=== PATIENT | male | born 2000 | race Caucasian/White ===

== ENCOUNTER 2022-05-31 03:58 | Emergency (ER) | payer OTHER, SELFPAY ==
--- NOTE | ~2022-05-31 | CT_ITS ---
EXAMINATION: CT HEAD WITHOUT CONTRAST CLINICAL INFORMATION: Headache and dizziness. Rule out mass. COMPARISON: None available. TECHNIQUE: Contiguous axial imaging was performed from the skull base to vertex without intravenous administration of contrast. This CT examination was performed using dose optimization techniques as appropriate, variously including the following: *Automated exposure control *Adjustment of mA and/or kV according to patient size (this includes techniques or standardized protocols for targeted exams where dose is matched to indication/reason for exam; i.e. extremities or head) *Use of iterative reconstruction technique DLP: 650 mGy-cm FINDINGS: There is no evidence of acute intracranial hemorrhage or territorial infarction. No abnormal mass effect or midline shift is seen. Walters to white matter differentiation is well preserved. No extra-axial fluid collections are identified. No hydrocephalus. No significant volume loss. There is no abnormal attenuation within the brain parenchyma. No acute osseous or soft tissue abnormality. The mastoid air cells and visualized portions of the paranasal sinuses are well aerated. CT/CT head/brain wo IV con IMPRESSION: No acute intracranial pathology.
--- NOTE | 2022-05-31 04:01 | ECG_ITS ---
Test Reason : chest pain Blood Pressure : / mmHG Vent. Rate : 085 BPM Atrial Rate : 085 BPM P-R Int : 162 ms QRS Dur : 088 ms QT Int : 372 ms P-R-T Axes : 074 075 033 degrees QTc Int : 442 ms Normal sinus rhythm Biatrial enlargement Abnormal ECG No previous ECGs available Referred By: Generic ED Physician Electronically Signed By:MARLA BELLAMY
[2022-05-31 04:02] VITALS: BP 125/74; PULSE 82; RESP 16; TEMP 36.4; O2SAT 98; BMI 21.6
[2022-05-31 04:22] LABS: MANUAL DIFF FLAG NO
[2022-05-31 04:23] LABS: Basophils Percent Auto 0.6 % (0-2); Eosinophils Absolute Auto 0.2 X10*3/uL (0.0-0.4); Eosinophils Percent Auto 3.4 % (0-4); Hematocrit 47.7 % (42.0-52.0); Imm Gran Abs Auto 0.01 X10*3/uL (0.00-0.03); Imm Gran Pct Auto 0.1 % (0.0-0.4); Lymphocytes Absolute Auto 2.4 X10*3/uL (1.2-4.9); Lymphocytes Percent Auto 32.8 % (20-40); Mean Corpuscular HGB Conc 35.6 g/dl (31.0-36.0); Mean Corpuscular Hemoglobin 28.9 pg (27.0-33.0); Mean Corpuscular Volume 81.1 fL (80.0-98.0); Monocytes Absolute Auto 0.4 X10*3/uL (0.1-1.2); Neutrophils Absolute Auto 4.1 x10*3/uL (2.0-8.3); Neutrophils Percent Auto 57.1 % (45-73); Platelet Count 212 X10*3/uL (160-400); Red Blood Count 5.88 X10*6/uL (4.60-5.80); Red Cell Distribution Width 13.2 % (11.0-16.0); White Blood Count 7.2 X10*3/uL (4.8-10.8)
--- NOTE | 2022-05-31 04:30 | PC.NURSE ---
Pt aox4 with dad at the bedside. Breaths are even regular and unlabored. NSR on monitor with HR of 75. Abd soft and non tender. Skin warm pink and clammy. Reports chest pain, 9/10. EKG done and given to provider. Labs drawn and sent. 20G IV line on the L AC. Pt tolerated well. Pending lab results and provider evaluation. Will continue to monitor.
[2022-05-31 05:23] LABS: Troponin-I High Sensitivity < 2.7 ng/L (<3.5-35.0)
[2022-05-31 05:24] LABS: Alanine Aminotransferase 22 U/L (0-40); Alkaline Phosphatase 107 U/L (39-117); Anion Gap 18 (12-20); Aspartate Amino Transferase 20 U/L (5-37); Bilirubin Total 0.8 mg/dL (0.0-1.0); Blood Urea Nitrogen 13 mg/dL (9-16); Carbon Dioxide 18 mmol/L (22-29); Chloride 110 mmol/L (96-108); Creatinine Clr Calc Pharmacy 122.8; Estimated Glomerular Filt Rate > 60; Glucose Fasting 81 mg/dL (60-99); Potassium 3.8 mmol/L (3.3-5.1); Sodium 142 mmol/L (135-145); Total Protein 7.8 g/dL (6.5-8.0)
--- NOTE | 2022-05-31 05:52 | ED.CHESTPAIN ---
HPI - Chest Pain General Chief Complaint: Chest Pain Stated Complaint: cp, n/v Time Seen by Provider: 05/31/22 05:52 Source: patient and family (Father, Andrea) Mode of arrival: ambulatory Limitations: no limitations History of Present Illness HPI narrative: 21-year-old male who presents emergency department for evaluation of chest pain, nausea, headache, dizziness. The patient states that 2 weeks prior, he was sitting about to have dinner with a friend when he had a sudden syncopal episode. The patient does not have any memory of the event. His friend states that the patient fell and his eyes were open, staring into space, there was no seizure activity noted. The syncopal event lasted several minutes, when the patient woke up he was confused and had no memory of passing out. He states that he had no prodrome will symptoms. Patient states that when the paramedics arrived his vital signs were abnormal with a blood pressure of 80/50 and a heart rate which was 30. Patient was seen at [facility] and had blood work which was normal pain. EKG was read as biatrial enlargement. Patient followed up with his PCP and had a 48 hour Holter monitor done but does not have the result. He is not seen a lacquer sizer but he is scheduled for an echocardiogram at this facility in 2 days. Patient states that on 05/27/2022 (5 days prior) these he had an episode of chest pain with palpitations. He states this morning at 03:00 hours he woke up and felt his heart was beating in his stomach area. He believes that the heart was not beating fast or irregularly. He felt lightheaded and dizzy. He had nausea but no vomiting. He describes the dizzy sensation is feeling ?drunk ?. He points to his sternum when asked to localize the pain. He states that it was a sharp pressure-like pain. He did have a headache today. He states that he has lost approximately 10 lb unintentionally. He denied night sweats. Related Data Allergies Allergy/AdvReac Type Severity Reaction Status Date / Time No Known Allergies Allergy Unverified 11/01/19 16:43 [No Known Allergies*] Review of Systems Review of Systems: Yes all other systems are reviewed and are negative [facility] Past Medical History [facility] Narrative: Past medical history: Depression, PTSD, juvenile rheumatoid arthritis. 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 Denies tobacco use. He drinks alcohol socially. He denies drug use. Social History Social History Advance Directives: No Physical Exam Vital Signs: Vital Signs: Last Vital Signs Temp 97.5 F 05/31/22 04:02 Pulse 94 05/31/22 06:22 Resp 16 05/31/22 04:02 BP 122/80 05/31/22 06:22 Pulse Ox 98 05/31/22 04:02 O2 Del Method Room Air 05/31/22 04:02 BMI result Body Mass Index 21.6 Const: General: cooperative and no acute distress Orientation/consciousness: oriented to person and oriented to place Limitations: no limitations HEENT: Head: Yes normal to inspection, Yes normocephalic and Yes atraumatic Ears: external ears normal General nose exam: Normal external nose present Face and sinus: Yes normal facial exam Mouth: Normal oral and palatal mucosa present Throat: Yes posterior oropharynx normal Eyes: General: appearance normal, both eyes and all related structures Pupils: Equal, round and reactive pupils present Neck: Neck: Yes normal visual inspection, Yes no lymphadenopathy, Yes trachea midline and Yes supple Chest: Chest palpation & inspection: normal inspection of the chest and normal palpation of entire chest wall Resp: Effort & Inspection: normal respiratory effort and able to speak in complete sentences Auscultation: clear to auscultation bilaterally Cardio: Rate: regular rate Rhythm: regular rhythm Heart sounds: S1 normal heart sound present, S2 normal heart sound present and no murmurs GI: Inspection: Yes normal to inspection Palpation (GI): Soft to palpation, nontender and no guarding Auscultation: normal bowel sounds : General: Yes no CVA tenderness Back/Spine/Pelvis: Back: no CVA tenderness Skin: General skin exam: no rashes or lesions noted Neuro: General: oriented to person and oriented to place Cranial nerves: Yes CN's II-XII intact bilaterally and Yes Equal, round and reactive pupils present Cognition (Neuro): normal cognition Motor exam (neuro): 5/5 motor strength present throughout Coordination: [id number]-[id number] test normal, [id number]-zm-[id number] test normal and other (No nystagmus, no positional vertigo) Extrem: General: Yes normal to inspection Psych: Appearance: grossly normal Speech and movement: Normal speech and movement present Affect: normal affect Attitude: cooperative Thought process: Normal thought process present Thought content: Normal thought content present Medical Decision Making Medical Decision Making [facility] Narrative: 21-year-old male who presents emergency department for evaluation of chest pain, nausea, lightheadedness, dizziness, and headache which started at 03:00 hours. Patient has similar episode 5 days prior. Patient also had a syncopal episode 2 weeks prior. Patient's vital signs were normal. Physical examination was unremarkable. Patient's presentation was concerning since he had a sudden syncopal episode with no prodrome oral symptoms 2 weeks prior and is now having chest pain with palpitations and nausea. I did order laboratory evaluation to include CBC, CMP, troponin, EKG, CT scan of the brain, orthostatic vital signs. 0705: My interpretation patient's laboratory data is as follows: CBC normal. Chloride elevated 110, bicarb low 18. LFTs normal. Troponin was below detectable limits. Twelve EKG was unremarkable. Patient's orthostatic vital signs were normal. Differential Diagnosis Differential diagnosis includes was not limited to viral syndrome, coronary disease, arrhythmia, palpitations, anxiety, electrolyte abnormalities, anemia Lab Data [facility] Lab Attestation statement: I reviewed the patient's lab results. Please see [facility] 05/31/22 04:18 05/31/22 04:42 Labs: Lab Results 05/31/22 05/31/22 05/31/22 Range/Units 04:18 04:42 04:42 WBC 7.2 (4.8-10.8) X10*3/uL RBC 5.88 H (4.60-5.80) X10*6/uL Hgb 17.0 (14.0-18.0) g/dl Hct 47.7 (42.0-52.0) % MCV 81.1 (80.0-98.0) fL MCH 28.9 (27.0-33.0) pg MCHC 35.6 (31.0-36.0) g/dl RDW 13.2 (11.0-16.0) % Plt Count 212 (160-400) X10*3/uL MPV 11.0 (9.4-12.4) fL Immature Gran % (Auto) 0.1 (0.0-0.4) % Neut % (Auto) 57.1 (45-73) % Lymph % (Auto) 32.8 (20-40) % [place] % (Auto) 6.0 (2-11) % Eos % (Auto) 3.4 (0-4) % Baso % (Auto) 0.6 (0-2) % Lymph # (Auto) 2.4 (1.2-4.9) X10*3/uL [place] # (Auto) 0.4 (0.1-1.2) X10*3/uL Eos # (Auto) 0.2 (0.0-0.4) X10*3/uL Baso # (Auto) 0.0 (0.0-0.2) X10*3/uL Abs Immat Gran (auto) 0.01 (0.00-0.03) X10*3/uL Absolute Neuts (auto) 4.1 (2.0-8.3) x10*3/uL Absolute Nucleated RBC 0.000 (0.0-0.012) X10*3/uL Nucleated RBC % (auto) 0.0 (0.0-0.2) /100WBC Sodium 142 (135-145) mmol/L Potassium 3.8 (3.3-5.1) mmol/L Chloride 110 H (96-108) mmol/L Carbon Dioxide 18 L (22-29) mmol/L Anion Gap 18 (12-20) BUN 13 (9-16) mg/dL Creatinine 0.93 (0.5-1.4) mg/dL Estim Creat Clear Calc 122.8 Estimated GFR > 60 Fasting Glucose 81 (60-99) mg/dL Calcium 10.0 (8.4-10.2) mg/dL Total Bilirubin 0.8 (0.0-1.0) mg/dL AST 20 (5-37) U/L ALT 22 (0-40) U/L Alkaline Phosphatase 107 (39-117) U/L Troponin I High Sens < 2.7 (<3.5-35.0) ng/L Total Protein 7.8 (6.5-8.0) g/dL Albumin 5.0 (3.5-5.0) g/dL Independent Interpretation I performed an independent interpretation of an: EKG and CT Scan (Head without IV contrast) Interpretation: My independent interpretation of the patient's 12 EKG is as follows: Normal sinus rhythm rate of 85, normal RI interval, QRS duration and QTC interval, no ST segment elevation, no ST segment depression, no PACs, no PVCs. My independent interpretation of the patient's CT scan of the head without contrast is as follows: No acute disease Radiology Impression Discussion of test interpretation with radiology: I have reviewed the radiologist's reading. Radiologist Impression: CT head/brain wo IV con IMPRESSION: No acute intracranial pathology. Dictated By:Jeremy Carty MD Independent Historian Clinical information obtained from an independent historian. History obtained from or confirmed by: Parent Discharge Plan Discharge Clinical Impression: Heart palpitations, Chest pain, Headache Patient Disposition: Home, Self-Care Instructions: Heart Palpitations (ED) Additional Instructions: Your blood work was normal. Your high sensitivity troponin I (i marker of heart damage) was below detectable limits which is reassuring. Your 12 EKG was unremarkable. The CT scan of your brain was normal. Your orthostatic vital signs were normal. Your physical examination was unremarkable, you have a normal neurologic exam at this time. You the headache was treated with normal saline x1 L, Toradol 15 mg IV, regular and 10 mg IV and Benadryl 50 mg IV. Given that it is a holiday, I am not able to get an echocardiogram on you today but make sure you get your echocardiogram as scheduled. Follow-up with your doctor in 2 days. Please return to the emergency department if your symptoms get worse or if you develop any symptoms that are concerning to you.
[2022-05-31 06:21] VITALS: BP 119/86; BP 125/82; PULSE 81; PULSE 98
[2022-05-31 06:22] VITALS: BP 122/80; PULSE 94
[2022-05-31] MEDS: 0.9 % Sodium Chloride 1,000 ML 999 ML IV (07:59)
[2022-05-31] MEDS: Ketorolac Tromethamine 15 MG/ML VIAL IVPUSH (08:10)
[2022-05-31] MEDS: diphenhydrAMINE HCL 50 MG/ML VIAL IVPUSH (08:10)
[2022-05-31] MEDS: Metoclopramide HCl 10 MG/2 ML VIAL IVPUSH (08:11)
== END 2022-05-31 08:45 | disposition home or self-care (01) ==
PROVIDERS: Emergency Provider Emergency Medicine Emergency Medical Services; PCP Family Medicine
DX: R00.2 Palpitations (principal); R07.9 Chest pain, unspecified; R51.9 Headache, unspecified
CPT/HCPCS: 36415; 70450; 80053; 84484; 85025; 93005; 96374; 96375; 99284; 99285; J1200; J1885; J2765

== ENCOUNTER → 2022-06-02 07:52 | Outpatient (REF) | payer OTHER, SELFPAY ==
--- NOTE | 2022-06-02 07:57 | CA_ITS ---
Transthoracic Echocardiogram Patient (Last, First, Middle): Magdiel Menon, Gender: Male Date of : 2000 Age: 21 Procedure Date: 06/02/2022 Procedure Type: Transthoracic Echocardiogram Location: OP Height: 180.34 cm Weight: 72.58 kg BSA: 1.92 m2 Heart Rate: 71 bpm BP: 120 / 80 mmHg [employer] Machine Tender: WILMA Referring MD: Johnie Rosado MD Symptoms: SYNCOPE AND COLLAPSE Study Quality: Adequate ECG Rhythm: Sinus Conclusions: - The left ventricular systolic function is low normal. The visually estimated ejection fraction is between 50-55%. - No obvious valvular pathology seen on this study. Findings Left Ventricle Normal left ventricular cavity size. There is normal left ventricular wall thickness. The left ventricular systolic function is low normal. The visually estimated ejection fraction is between 50-55%. There is no evidence of regional wall motion abnormalities. Diastolic function is normal for age. LV peak global longitudinal strain diminished at -14.6%. Right Ventricle Normal right ventricular cavity size and systolic function. Atria Both atria are normal in size. Aortic Valve There is a normal trileaflet aortic valve. There is no aortic valve stenosis. There is no aortic valve regurgitation. Mitral Valve The mitral valve appears normal. There is no mitral valve regurgitation. There is no mitral valve stenosis. Pulmonic Valve The pulmonic valve is likely normal. Tricuspid Valve Normal tricuspid valve structure. There is trace tricuspid valve regurgitation. There is no evidence of pulmonary hypertension. Great Vessels The asc aorta is normal in size. Venous The inferior vena cava is normal in size and collapses greater than 50% with inspiration. Pericardium/Pleural There is no evidence of pericardial effusion. Prior Study Comparison No prior study available for comparison. Recommendations, Care & Conclusions No obvious valvular pathology seen on this study. Measurements 2D Linear Measurements IVSd: 0.75 0.6-0.9/0.6-1.0 cm LVIDd: 4.26 3.9-5.3/4.2-5.9 cm LVIDd Index: 2.22 2.4-3.2/2.2-3.1 cm/m2 LVIDs: 2.78 2.0-3.6 cm LVPWd: 0.83 0.7-1.1 cm LA Diam: 2.60 2.7-3.8/3.0-4.0 cm LAIDs Index: 1.35 1.5-2.3 cm/m2 LV Mass: 126.53 67-162/88-224 g LV Mass Index: 65.90 43-95/49-115 g/m2 LVOT Diam: 2.00 3.0+(-)1.3 cm 2D Systolic Function EF 4C: 52.40 >55% EF 2C: 54.00 >55% Mitral Valve MV Pk E: 0.77 MV PK A: 0.58 MV Decel Time: 198.00 E/A: 1.30 E'Lateral: 19.00 E'Medial: 11.10 E/E' Med: 6.90 E/E' Lat: 4.00 PHT: 58.00 MVA PHT: 3.79 Decel Marshall: 3.86 Aortic Valve AoV Pk Pankaj: 1.10 AoV Mn Pankaj: 0.80 AoV VTI: 0.22 AoV Pk Grad: 5.00 Aov Mn Grad: 3.00 FABIAN Cont.VTI: 2.17 LVOT LVOT Pk Pankaj: 0.87 LVOT Mn Pankaj: 0.60 LVOT VTI: 0.16 LVOT Pk Grad: 3.00 LVOT Mn Grad: 2.00 LVOT Diam: 2.00 LVOT Area: 3.14 Diastolic Function MV Pk E: 0.77 MV Pk A: 0.58 E/A: 1.30 E'Medial: 11.10 E/E' Med: 6.90 E' Laterial: 19.00 E/E' Lat: 4.00 Right Ventricle TAPSE (mm): 18.40 TVS' Pankaj: 11.50 Tricuspid Valve TR Pk Pankaj: 1.34 TR Pk Grad: 7.00 RA Press: 3.00 RVSP: 10.00 Great Vessels Aorta Sinus of Valsalva: 3.00 2.0-3.5 cm Ao Asc: 2.70 2.1-3.4 cm Pulmonary Valve PV Pk Pankaj: 1.36 Peak PV Grad: 7.00 Updated in Other Vendor System with Status of Final William Morales MD electronically signed on 06/04/2022 12:51:27 PM with status of Final
== END ==
LOC: HO.CARD 07:52
PROVIDERS: PCP Family Medicine; Visit Provider Family Medicine
DX: R55 Syncope and collapse (principal)
CPT/HCPCS: 93306; 93356

== ENCOUNTER 2024-03-10 20:45 | Emergency (ER) | payer BC, SELFPAY ==
[2024-03-10 20:57] VITALS: BP 131/86; PULSE 85; RESP 16; TEMP 36.7; O2SAT 97; BMI 28.0
--- NOTE | 2024-03-10 21:08 | PC.NURSE ---
Addendum entered by Amelia Tabor 03/10/24 21:09: pt calm and cooperative in triage Original Note: pt endorsing SI with plan in triage medical charge entry specialist made aware awaiting bed assignment @ this time
--- NOTE | 2024-03-10 21:27 | ED_ITS ---
HPI - Psych General Chief Complaint: Psychiatric Symptoms Stated Complaint: SI Time Seen by Provider: 03/10/24 22:50 Source: patient, RN notes reviewed and old records reviewed Mode of arrival: ambulatory Limitations: no limitations History of Present Illness ED Provider: Edward SPAIN Narrative: 23-year-old male with past medical history significant for depression presents for evaluation of suicidal ideation. Patient reports he has been having increased depression today with suicidal thoughts. He can not think of any triggers exacerbating his symptoms. He has a plan to overdose on pills. He reports that he last felt this way about 2 years ago when he absolutely did overdose He reports that he stopped taking his medications about 6 months ago because he felt like he would not need them anymore. He is unsure what medications he used to take are called The patient reports that he did not actually tried to harm himself today and presented to the ER before he did anything Related Data Allergies Allergy/AdvReac Type Severity Reaction Status Date / Time No Known Allergies Allergy Verified 03/10/24 21:00 [No Known Allergies*] Review of Systems 2 Constitutional: Constitutional: Denies body ache(s), Denies chills, Denies fever(s) and Denies headache(s) Eyes: Eyes: Denies blurry vision ENT: Denies vertigo, Denies dizziness and Denies headache(s) Cardiovascular: Cardiovascular: Denies chest pain Respiratory: Respiratory: Denies cough Gastrointestinal: Gastrointestinal: Denies abdominal pain, Denies nausea and Denies vomiting Musculoskeletal: Musculoskeletal: Denies back pain Neurologic: Denies vertigo, Denies dizziness and Denies headache(s) Psychiatric: Psychiatric: Denies anxiety, Reports depression and Reports suicidal ideation [facility] Social History Social History Smoked in Last 30 Days: Yes Use of substances other than those prescribed or required for medical reasons: No Advance Directives: No Advance Directives Information Provided: Yes Do you have a plan to hurt others: No Plan Physical Exam 2 Vital Signs: Vital Signs: Last Vital Signs Temp 97.1 F 03/11/24 12:55 Pulse 83 03/11/24 12:55 Resp 18 03/11/24 12:55 BP 132/86 03/11/24 12:55 Pulse Ox 96 03/11/24 12:55 O2 Del Method Room Air 03/11/24 12:55 BMI result Body Mass Index 28.0 Const: General: healthy appearing, comfortable, no acute distress, alert and awake Nutritional Appearance: well nourished Orientation/consciousness: p atient oriented x3 HEENT: Head: Yes normocephalic and Yes atraumatic Eyes: Eyelids: Yes eyelids normal Conjunctivae: conjunctivae normal S clerae: sclerae normal Corneas: corneas normal Pupils: Equal, round and reactive pupils present EOM: EOMs intact bilaterally Neck: Neck: Yes full ROM Resp: Effort & Inspection: normal respiratory effort, able to speak in complete sentences and not labored Cardio: Rate: regular rate Rhythm: regular rhythm Skin: General skin exam: elasticity normal Neuro: General: patient oriented x3 Cranial nerves: Yes CN's II-XII intact bilaterally, Yes Equal, round and reactive pupils present and Yes Bilaterally intact EOM present Cognition (Neuro): normal cognition Course Course Course Narrative: This is a Rapid Medical Examination (RME) performed by Jayleen Lucio PA-C in triage. Full HPI, ROS, assessment and treatment plan per primary provider in the Main ED. 23 yo male here for eval of SI w/ plan to OD on pills. hx of prev attempts 2 yrs ago. denies HI. denies AH/VH/TH. no recent life stressors/ triggers. no recent med changes. Plan: labs, UA, UDS, ekg, care team Reevaluation(s) Reevaluation #1: 13:37 03/11/2024 Stacey Grey NP Patient was evaluated by care team. Patient denies suicidal ideations at this time. Admits that he was consuming alcohol yesterday evening when the thought came across his mind, he came promptly to the emergency department for assistance. Denies any further suicidal Loya. Lionel was present bedside who expresses concern about his current mental state. He has been referred for outpatient services follow-up with [facility] for establishing care with a therapist Medications Administered Discontinued Medications Generic Name Dose Route Start Last Admin Trade Name Freq PRN Reason Stop Dose Admin Trazodone HCl 50 mg 03/10/24 23:39 03/10/24 23:49 Trazodone Hcl 50 Mg Tablet PO 03/10/24 23:40 50 mg ONCE ONE Administration Medical Decision Making Medical Decision Making MDM Narrative: 23-year-old male presents for evaluation of depression with suicidal ideation. He reports his symptoms worsened acutely today but can not pinpoint any specific triggers. His labs were reviewed that show a mild elevation of AST and ALT which are likely related to alcohol abuse. The patient admits to drinking about twice a week in his last drink was today. He has no abdominal pain, nausea vomiting. He is medically cleared for care team evaluation Differential Diagnosis Differential Diagnoses: The differential diagnosis associated with the presentation includes Depression with suicidal ideation Substance abuse Alcohol abuse Medication noncompliant Lab Data MDM Lab Attestation statement: I reviewed the patient's lab results. No leukocytosis, no significant anemia. Normal platelet count. No significant electrolyte abnormalities. Mild elevation of AST and ALT as mentioned above. 03/10/24 21:39 03/10/24 21:39 Labs: Lab Results 03/10/24 Range/Units 21:39 WBC 6.5 (4.8-10.8) X10*3/uL RBC 5.89 H (4.60-5.80) X10*6/uL Hgb 17.3 (14.0-18.0) g/dl Hct 49.5 (42.0-52.0) % MCV 84.0 (80.0-98.0) fL MCH 29.4 (27.0-33.0) pg MCHC 34.9 (31.0-36.0) g/dl RDW 12.9 (11.0-16.0) % Plt Count 227 (160-400) X10*3/uL MPV 10.3 (9.4-12.4) fL Immature Gran % (Auto) 0.8 H (0.0-0.4) % Neut % (Auto) 54.0 (45-73) % Lymph % (Auto) 36.4 (20-40) % [place] % (Auto) 4.6 (2-11) % Eos % (Auto) 3.4 (0-4) % Baso % (Auto) 0.8 (0-2) % Lymph # (Auto) 2.4 (1.2-4.9) X10*3/uL [place] # (Auto) 0.3 (0.1-1.2) X10*3/uL Eos # (Auto) 0.2 (0.0-0.4) X10*3/uL Baso # (Auto) 0.1 (0.0-0.2) X10*3/uL Abs Immat Gran (auto) 0.05 H (0.00-0.03) X10*3/uL Absolute Neuts (auto) 3.5 (2.0-8.3) x10*3/uL Absolute Nucleated RBC 0.000 (0.0-0.012) X10*3/uL Nucleated RBC % (auto) 0.0 (0.0-0.2) /100WBC Sodium 141 (135-145) mmol/L Potassium 4.0 (3.3-5.1) mmol/L Chloride 108 (96-108) mmol/L Carbon Dioxide 21 L (22-29) mmol/L Anion Gap 16 (12-20) BUN 9 (9-16) mg/dL Creatinine 0.78 (0.5-1.4) mg/dL Estim Creat Clear Calc 167.1 Estimated GFR > 60 Random Glucose 86 (60-115) mg/dL Calcium 10.1 (8.4-10.2) mg/dL Magnesium 2.4 (1.6-2.6) mg/dL Total Bilirubin 0.3 (0.0-1.0) mg/dL AST 59 H (5-37) U/L ALT 121 H (0-40) U/L Alkaline Phosphatase 88 (39-117) U/L Total Protein 9.3 H (6.5-8.0) g/dL Albumin 5.0 (3.5-5.0) g/dL Urine Color Yellow Urine Appearance Clear Urine pH 5.5 (5.0-9.0) Ur Specific [place] <= 1.005 (1.005-1.025) Urine Protein Negative (Neg-Trace) mg/dL Urine Glucose (UA) Negative (Negative) mg/dL Urine Ketones Negative (Negative) mg/dL Urine Blood Negative (Negative) Urine Nitrite Negative (Negative) Ur Leukocyte Esterase Negative (Negative) Salicylates < 5.0 L (15-30) mg/dL Urine Opiates Screen Not Detected (Not Detect) Ur Buprenorphine Scrn Not Detected (Not Detect) ng/mL Ur Oxycodone Screen Not Detected (Not Detect) ng/mL Urine Methadone Screen Not Detected (Not Detect) ng/mL Urine Fentanyl Screen Not Detected (Not Detect) Acetaminophen < 3 (<30) mcg/mL Ur Barbiturates Screen Not Detected (Not Detect) Ur Phencyclidine Scrn Not Detected (Not Detect) Ur Amphetamines Screen Not Detected (Not Detect) U Benzodiazepines Scrn Not Detected (Not Detect) Urine Cocaine Screen Not Detected (Not Detect) U Marijuana (THC) Screen Not Detected (Not Detect) Ethyl Alcohol 198 mg/dL Discharge Plan Discharge Clinical Impression: Depression with suicidal ideation, Acute alcohol intoxication Patient Disposition: Home, Self-Care Additional Instructions: You were evaluated in the emergency department for suicidal thoughts in the setting of alcohol consumption last night. You were evaluated by our mental health team, you are being referred for outpatient services with [facility] to establish care with a therapist. If you have any new or worsening symptoms or concerns, thoughts of harming herself, harming others, worsening or severe depression/anxiety may return back to emergency department. Refrain from alcohol consumption. Interventions: [place]-Suicide Risk Severity Scale Last Done: 03/10/24 22:13 Print Language: Khmer
--- NOTE | 2024-03-10 21:39 | MHC.EDTECH ---
Patient brought into triage area,labs and urine obtained and sent to lab
[2024-03-10 21:49] LABS: MANUAL DIFF FLAG NO
[2024-03-10 21:53] LABS: Basophils Absolute Auto 0.1 X10*3/uL (0.0-0.2); Basophils Percent Auto 0.8 % (0-2); Eosinophils Absolute Auto 0.2 X10*3/uL (0.0-0.4); Eosinophils Percent Auto 3.4 % (0-4); Hematocrit 49.5 % (42.0-52.0); Hemoglobin 17.3 g/dl (14.0-18.0); Imm Gran Abs Auto 0.05 X10*3/uL (0.00-0.03); Imm Gran Pct Auto 0.8 % (0.0-0.4); Lymphocytes Absolute Auto 2.4 X10*3/uL (1.2-4.9); Lymphocytes Percent Auto 36.4 % (20-40); Mean Corpuscular HGB Conc 34.9 g/dl (31.0-36.0); Mean Corpuscular Hemoglobin 29.4 pg (27.0-33.0); Mean Platelet Volume 10.3 fL (9.4-12.4); Monocytes Absolute Auto 0.3 X10*3/uL (0.1-1.2); Monocytes Percent Auto 4.6 % (2-11); Neutrophils Absolute Auto 3.5 x10*3/uL (2.0-8.3); Platelet Count 227 X10*3/uL (160-400); Red Blood Count 5.89 X10*6/uL (4.60-5.80); Red Cell Distribution Width 12.9 % (11.0-16.0); White Blood Count 6.5 X10*3/uL (4.8-10.8)
[2024-03-10 21:56] LABS: Appearance Urine Clear; Color Urine Yellow; Glucose Urine UA Negative (Negative); Leukocyte Esterase Urine Negative (Negative); Nitrite Urine Negative (Negative); PH 5.5 (5.0-9.0); Specific Gravity - Urine <= 1.005 (1.005-1.025); Urine Blood Negative (Negative); Urine Ketones Negative (Negative); Urine Protein Negative (Neg-Trace)
[2024-03-10 22:07] LABS: Ethanol 198 mg/dL
[2024-03-10 22:08] LABS: Amphetamine Screen Urine Not Detected (Not Detect); Barbiturates, Urine Not Detected (Not Detect); Benzodiazepines Screen Urine Not Detected (Not Detect); Buprenorphine Scr Not Detected (Not Detect); Cannabinoid Screen Urine Not Detected (Not Detect); Cocaine Screen Urine Not Detected (Not Detect); Fentanyl, urine Not Detected (Not Detect); Methadone Screen, Urine Not Detected (Not Detect); Opiate Screen Urine Not Detected (Not Detect); Oxycodone Screen Urine Not Detected (Not Detect); Phencyclidine Screen Urine Not Detected (Not Detect)
[2024-03-10 22:09] LABS: Alanine Aminotransferase 121 U/L (0-40); Alkaline Phosphatase 88 U/L (39-117); Anion Gap 16 (12-20); Aspartate Amino Transferase 59 U/L (5-37); Bilirubin Total 0.3 mg/dL (0.0-1.0); Blood Urea Nitrogen 9 mg/dL (9-16); Calcium 10.1 mg/dL (8.4-10.2); Carbon Dioxide 21 mmol/L (22-29); Chloride 108 mmol/L (96-108); Creatinine Clr Calc Pharmacy 167.1; Estimated Glomerular Filt Rate > 60; Glucose Random 86 mg/dL (60-115); Magnesium 2.4 mg/dL (1.6-2.6); Sodium 141 mmol/L (135-145); Total Protein 9.3 g/dL (6.5-8.0)
[2024-03-10 22:11] VITALS: BP 123/79; PULSE 82; RESP 16; TEMP 36.1; O2SAT 98
[2024-03-10 22:11] LABS: Acetaminophen LAB < 3 mcg/mL (<30); Salicylate < 5.0 mg/dL (15-30)
--- NOTE | 2024-03-10 22:16 | PC.NURSE ---
pt changed over, pt calm and resting in stretcher
[2024-03-10] MEDS: traZODone HCL 50 MG TABLET PO (23:49)
--- NOTE | 2024-03-10 23:50 | PC.NURSE ---
medicated per mar.
[2024-03-11 05:26] VITALS: BP 120/64; PULSE 108; RESP 16; O2SAT 98
--- NOTE | 2024-03-11 05:27 | PC.NURSE ---
pt cooperative, pt given water. resting in stretcher
[2024-03-11 08:30] VITALS: BP 121/65; PULSE 103; RESP 18; TEMP 36.6; O2SAT 95
[2024-03-11 12:55] VITALS: BP 132/86; PULSE 83; RESP 18; TEMP 36.2; O2SAT 96
[2024-03-11 13:53] VITALS: BP 129/79; PULSE 81; RESP 16; TEMP 36.6; O2SAT 97
--- NOTE | 2024-03-11 15:14 | MHC.CARE ---
Pt assessed by CARE team, cleared for discharge, will be referred for [facility] follow ups and individual therapy.
== END 2024-03-11 13:54 | disposition home or self-care (01) ==
PROVIDERS: Physician Assistant Medical; Emergency Provider Emergency Medicine Emergency Medical Services; PCP Family Medicine
DX: F32.A Depression, unspecified (principal); R45.851 Suicidal ideations; F10.920 Alcohol use, unspecified with intoxication, uncomplicated; Y90.6 Blood alcohol level of 120-199 mg/100 ml; Z91.148 Patient's other noncompliance with medication regimen for other reason
CPT/HCPCS: 36415; 80053; 80143; 80179; 80307; 81003; 83735; 85025; 99285; S9485

== ENCOUNTER 2024-05-13 20:27 | Emergency (ER) | payer BC, SELFPAY ==
--- NOTE | ~2024-05-13 | CT_ITS ---
CLINICAL HISTORY: pain CT left knee without contrast Comparison: CR - XR KNEE LT 4V - 05/13/24 21:15 EDT Findings: Tiny bone island noted along the medial tibial metaphysis with small sclerotic focus. No acute fracture. No significant osteoarthritic changes. Trace joint effusion. Soft tissues of the neck are normal. IMPRESSION: No acute findings. This document has been electronically signed by: Johnie Boone MD on 05/14/2024 00:35:21
--- NOTE | ~2024-05-13 | XR_ITS ---
CLINICAL HISTORY: pain in left knee 4 view left knee Comparison: None Findings: Bones intact. No dislocations. No significant loss of joint space, osteophytes, or erosions. No joint effusion. No radiopaque foreign body. Anterior soft tissue swelling. IMPRESSION: 1. No acute fracture. This document has been electronically signed by: Johnie Boone MD on 05/13/2024 21:53:20
[2024-05-13 21:01] VITALS: BP 129/87; PULSE 95; RESP 18; TEMP 36.7; O2SAT 96; BMI 27.2
[2024-05-13] MEDS: Ibuprofen 600 MG TABLET PO (21:08)
--- NOTE | 2024-05-13 21:33 | PC.NURSE ---
Patient presents with left knee pain since the . Patient states was seen by ortho and radiology exam was negative. Pain has been steadily getting worse and patient states pain noted noted to medial aspect right below patella.
[2024-05-13 21:35] VITALS: BP 117/77; PULSE 97; RESP 16; TEMP 36.6; O2SAT 96
[2024-05-14] MEDS: Ketorolac Tromethamine 15 MG/ML VIAL IM
[2024-05-14] MEDS: methocarbamoL 750 MG TABLET 1500 MG PO
--- NOTE | 2024-05-14 00:48 | ED_ITS ---
HPI - General Adult General Chief complaint: Extremity Injury, Lower Stated complaint: L knee pain from previous injury Time Seen by Provider: 05/13/24 22:27 Source: patient Limitations: no limitations History of Present Illness ED Provider: Ashley Correa PA-C HPI narrative: 23-year-old male presents with left knee pain x8 days. Patient ran in a 10 K, he has had pain since. There was no fall, or twisting injury. Patient has focal pain in the anterior knee. Worse with movement and bearing weight. The pain becomes severe with attempts to ambulate. Associated mild swelling. Related Data Previous Rx's ?Medication ?Instructions ?Recorded methocarbamol 750 mg tablet 1,500 mg (2 x 750 mg) PO Q8H PRN 05/14/24 pain, moderate #20 tabs Allergies Allergy/AdvReac Type Severity Reaction Status Date / Time No Known Allergies Allergy Verified 05/13/24 21:03 [No Known Allergies*] Review of Systems Review of Systems: Yes all other systems are reviewed and are negative Constitutional: Constitutional: Denies fatigue and Denies fever(s) Musculoskeletal: Musculoskeletal: Reports arthralgias and Reports joint swelling Integumentary/Breasts: Skin/Breast: Denies erythema and Denies skin swelling Endocrine: Endocrine: Denies fatigue PMFSH Past Medical History Attestation statement: The following information was validated with the patient. Social History Social History Smoked in Last 30 Days: No Advance Directives: No Advance Directives Information Provided: No Do you have a plan to hurt others: No Plan Physical Exam ED Vital Signs: Vital Signs - 24 hr 05/13/24 21:01 05/13/24 21:35 Temperature 98.0 F 97.9 F Pulse Rate 95 97 Respiratory Rate 18 16 Blood Pressure 129/87 117/77 Pulse Oximetry 96 96 Oxygen Delivery Method Room Air Room Air BMI result Body Mass Index 27.2 Const Other: Alert well-appearing Orientation/consciousness: patient oriented x3 Resp Effort & Inspection: normal respiratory effort Cardio Other: Normal peripheral perfusion Skin Other: Warm dry no rash Neuro Other: Antalgic gait General: patient oriented x3, no focal motor deficits and CN's II-XI intact bilaterally Extrem Other: Patient walks with an antalgic gait, able to flex and extend the left knee, there is focal palpable pain over anterior knee with mild swelling, no redness or warmth of the joint Psych Other: Cooperative Medications Administered Discontinued Medications Generic Name Dose Route Start Last Admin Trade Name Charis PRN Reason Stop Dose Admin Ibuprofen 600 mg 05/13/24 21:05 05/13/24 21:08 Ibuprofen 600 Mg Tablet PO 05/13/24 21:06 600 mg ONCE ONE Administration Ketorolac Tromethamine 15 mg 05/13/24 23:46 05/14/24 00:00 Ketorolac Tromethamine 15 Mg/Ml Vial IM 05/13/24 23:47 15 mg ONCE ONE Administration Methocarbamol 1,500 mg 05/13/24 23:46 05/14/24 00:00 Methocarbamol 750 Mg Tablet PO 05/13/24 23:47 1,500 mg ONCE ONE Administration Medical Decision Making Medical Decision Making [facility] Narrative: 23-year-old male presents with left knee pain x8 days. Patient ran in a 10 K, he has had pain since. There was no fall, or twisting injury. Patient has focal pain in the anterior knee. Worse with movement and bearing weight. The pain becomes severe with attempts to ambulate. Associated mild swelling. No chronic issues History: Per patient I have considered the following differential diagnoses: Fracture, dislocation, bone contusion, sprain Plan: X-ray obtained from triage, it was negative for fracture or dislocation. His pain seems out of proportion with the exam, we will obtain a CT scan to be sure there was not an occult fracture of the tibial plateau. I have independently reviewed the following tests: X-ray left knee: Findings: Bones intact. No dislocations. No significant loss of joint space, osteophytes, or erosions. No joint effusion. No radiopaque foreign body. Anterior soft tissue swelling. IMPRESSION: 1. No acute fracture. CT left knee:Findings: Tiny bone island noted along the medial tibial metaphysis with small sclerotic focus. No acute fracture. No significant osteoarthritic changes. Trace joint effusion. Soft tissues of the neck are normal. IMPRESSION: No acute findings. Discharge Plan Discharge Clinical Impression: Contusion of knee, left Patient Disposition: Home, Self-Care Instructions: R.I.C.E. Treatment (ED), Bone Bruise (ED) Additional Instructions: The x-ray of the knee showed no fracture. We obtained a CT scan, you have a small focus of inflammation in the anterior knee tibial plateau. This will resolve in time. See home care instructions. Use the ketorolac as directed this is an anti-inflammatory, take it with food. Use the methocarbamol, this is a muscle relaxant, as needed for further pain. To note this medication will cause drowsiness do not drive or operate machinery while taking the medication. Use the crutches as needed to ambulate. I would purchase a compression sleeve for the knee, this will offer stability to the joint. Follow up with your primary care provider as needed. Prescriptions: New methocarbamol 750 mg tablet 1,500 mg PO Q8H PRN (Reason: pain, moderate) Qty: 20 0RF Print Language: [place]
[2024-05-14 01:47] VITALS: BP 122/71; PULSE 92; RESP 16; TEMP 36.6; O2SAT 96
== END 2024-05-14 01:47 | disposition home or self-care (01) ==
PROVIDERS: Emergency Provider Emergency Medicine; PCP Family Medicine
DX: S80.02XA Contusion of left knee, initial encounter (principal); X50.3XXA Overexertion from repetitive movements, initial encounter; Y93.02 Activity, running; Y92.9 Unspecified place or not applicable; Y99.9 Unspecified external cause status; M25.562 Pain in left knee
CPT/HCPCS: 73564; 73700; 96372; 99284; J1885

== ENCOUNTER → 2024-05-13 21:07 | Outpatient (BNV) | payer BC, SELFPAY | PROVIDERS: PCP Family Medicine; Visit Provider Radiology Diagnostic Radiology | DX: M25.562 Pain in left knee (principal) | CPT/HCPCS: 73564; 73700 ==